=== PATIENT | female | born 1950 | race African-American/Black ===

== ENCOUNTER 2018-12-10 11:44 | Emergency (ER) | payer OTHER ==
[2018-12-10 12:20] VITALS: BMI 36.3
--- NOTE | 2018-12-10 12:20 | PDOC ---
Rapid Medical Evaluation Chief Complaint: Shortness of Breath Time Seen by Provider: 12/10/18 12:17 Medical Evaluation: Allergies Allergy/AdvReac Type Severity Reaction Status Date / Time morphine Allergy Itching Verified 12/08/12 20:35 12/10/18 12:17 I have performed a brief in-person evaluation of this patient The patient present with a chief complaint of: worsening flu symptoms. Patient states swab + flu at Urgent center last week. Present here, sent by pmd, to r/o pneumonia. Complaining of bodyaches and shortness of breath Pertinent physical exam findings: occasional coughs in triage, hoarseness clear breaths, diminished breath on upper left posterior lung I have ordered the following: chest xray The patient will proceed to the ED for further evaluation. Discharge Disposition - Diagnosis Flu-like symptoms - Referrals - Patient Instructions - Post Discharge Activity
--- NOTE | 2018-12-10 14:56 | PDOC ---
History of Present Illness - General Chief Complaint: Shortness of Breath Stated Complaint: BODYACHE AND HEADACHE Time Seen by Provider: 12/10/18 12:17 History Source: Patient Exam Limitations: No Limitations - History of Present Illness Initial Comments: 12/10/18 14:48 68-year-old female presents the ED with complaints of nasal congestion, cough, and shortness of breath with coughing exacerbation. Patient with recent diagnosis of influenza last week was given Tamiflu and took Motrin for fever. Patient currently denies fever, chills, throat pain, dizziness, weakness, nausea , abdominal pain or chest pain. Timing/Duration: reports: intermittent, week Severity: reports: mild Modifying Factors: improves with: coughing Associated Symptoms: reports: cough, headache (frontal), nasal congestion Past History - Travel Traveled outside of the country in the last 30 days: No Close contact w/someone who was outside of country & ill: No - Past Medical History Allergies/Adverse Reactions: Allergies Allergy/AdvReac Type Severity Reaction Status Date / Time morphine Allergy Itching Verified 12/08/12 20:35 Home Medications: Ambulatory Orders Diltiazem Cd [Cardizem Cd -] 300 mg PO DAILY 04/03/12 Furosemide [Lasix -] 40 mg PO DAILY 04/03/12 Levothyroxine [Synthroid -] 150 mcg PO DAILY 04/03/12 Rivaroxaban [Xarelto -] 20 mg PO DAILY 12/08/12 Biotin 5 mg PO DAILY 04/07/15 Cholecalciferol (Vitamin D3) [Vitamin D3] 1 tab PO DAILY 04/07/15 Losartan Potassium [Cozaar] 1 tab PO DAILY 04/07/15 Pnv/Iron,Carb/Om-3/FA/Fat 1 [Multivitamin with Minerals Cap] 1 cap PO DAILY Amoxicillin/Potassium Clav [Augmentin 875-125 Tablet] 1 each PO BID #14 tablet 12/10/18 Guaifenesin AC [Robitussin AC] 10 ml PO BID #120 ml MDD 2 12/10/18 Anemia: No Asthma: No Cardiac Disorders: No (ATRIAL FIBRILLATION) CVA: Yes (LEFT SIDED WEAKNESS) COPD: No Dementia: No Diabetes: No GI Disorders: Yes (ABDOMINAL PAIN,BLOATING) Disorders: No HTN: Yes Hypercholesterolemia: No Liver Disease: No Seizures: No Thyroid Disease: Yes (HYPOTHYROID DISEASE) - Surgical History Abdominal Surgery: No Appendectomy: No Cholecystectomy: Yes Lung Surgery: No Neurologic Surgery: No Orthopedic Surgery: No - Suicide/Smoking/Psychosocial Hx Smoking Status: No Smoking History: Never smoked Have you smoked in the past 12 months: No Number of Cigarettes Smoked Daily: 0 Information on smoking cessation initiated: No Hx Alcohol Use: No Drug/Substance Use Hx: No Substance Use Type: None Hx Substance Use Treatment: No Patient Lives Alone: No Lives with/in: spouse/SO Respiratory Specific PMHX - Complaint Specific PMHX Bronchitis: Yes Review of Systems - Review of Systems Able to Perform ROS?: No Is the patient limited Norwegian proficient: No Constitutional: No: Symptoms Reported HEENTM: No: Symptoms Reported Respiratory: No: Symptoms reported Cardiac (ROS): No: Symptoms Reported ABD/GI: No: Symptoms Reported : No: Symptoms Reported Musculoskeletal: No: Symptoms Reported Integumentary: No: Symptoms Reported Neurological: No: Symptoms reported *Physical Exam - Vital Signs Last Vital Signs Temp Pulse Resp BP Pulse Ox 98.5 F 62 20 151/91 100 12/10/18 12:16 12/10/18 12:16 12/10/18 12:16 12/10/18 12:16 12/10/18 12:16 - Physical Exam General Appearance: Yes: Nourished, Appropriately Dressed. No: Apparent Distress HEENT: positive: EOMI, JAHAIRA, TMs Normal, Pharynx Normal, Nasal Congestion, Sinus Tenderness. negative: Pale Conjunctivae Neck: positive: Supple Respiratory/Chest: positive: Lungs Clear, Normal Breath Sounds. negative: Respiratory Distress, Accessory Muscle Use Cardiovascular: positive: Regular Rhythm, Regular Rate. negative: Murmur Gastrointestinal/Abdominal: positive: Soft. negative: Tenderness Integumentary: positive: Normal Color, Warm, Moist Neurologic: positive: Motor Strength 5/5 (ambulatory) Medical Decision Making - Medical Decision Making 12/10/18 14:47 Chief complaint: Cough congestion and shortness of breath. Patient with diagnosis of flu last week. Exam: Vital stable lungs clear to auscultation Plan: Chest x-ray to rule out pneumonia otherwise will treat for sinus infection *DC/Admit/Observation/Transfer Diagnosis at time of Disposition: Cough - Discharge Dispostion Disposition: HOME Condition at time of disposition: Good - Prescriptions Prescriptions: Amoxicillin/Potassium Clav [Augmentin 875-125 Tablet] 1 each PO BID #14 tablet Guaifenesin AC [Robitussin AC] 10 ml PO BID #120 ml MDD 2 - Referrals Referrals: Kendall Alvarez MD [Primary Care Provider] - - Patient Instructions Printed Discharge Instructions: DI for Cough -- Adult Additional Instructions: Please take Antibiotics as prescribed and use Robitussin with codeine to help the cough. Follow up with your primary care physician - Post Discharge Activity Forms/Work/School Notes: Back to Work
[2018-12-10 15:49] VITALS: PULSE 65; TEMP 98
[2018-12-10 15:59] VITALS: BP 0/0
== END 2018-12-10 15:49 | disposition home or self-care (01) ==
LOC: JER 11:44
DX: J11.1 Influenza due to unidentified influenza virus with other respiratory manifestations (principal); I48.91 Unspecified atrial fibrillation; Z79.01 Long term (current) use of anticoagulants; I10 Essential (primary) hypertension; E03.9 Hypothyroidism, unspecified; I69.854 Hemiplegia and hemiparesis following other cerebrovascular disease affecting left non-dominant side
CPT/HCPCS: 71046-TC-FY; 99282-25

== ENCOUNTER 2019-02-22 00:11 | Inpatient (IN) | payer OTHER ==
--- NOTE | 2019-02-22 00:28 | PDOC ---
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 Pt is accompanied by her son. Pt states she has been cleaning the wound with warm water and soap, and applying clean dressings daily. Pt states the redness, warmth, and weeping to the L leg has increased today, which brought her to the ER for concern of worsening infection. Pt has had cellulitis of the LEs in the past, requiring inpatient cultures and abx, per pt. Pt also has extensive clotting history, despite being on AC, requiring IVC filter placement. Pt denies any fevers/chills, headache, vision changes, syncope, chest pain, palpitations, SOB, nausea/vomiting, abdominal pain, urinary symptoms, diarrhea/ constipation. Allergies: morphine PCP: King Leach Social: Pt denies any cigarette, alcohol, or drug use. Pt denies any recent travel or sick contacts. Surgical: IVC filter placement, multiple DVT/emboli. Family: no relevant history. 02/24/19 16:47 Past History - Travel Traveled outside of the country in the last 30 days: No Close contact w/someone who was outside of country & ill: No - Past Medical History Allergies/Adverse Reactions: Allergies Allergy/AdvReac Type Severity Reaction Status Date / Time morphine Allergy Itching Verified 02/22/19 01:00 Home Medications: Ambulatory Orders Diltiazem Cd [Cardizem Cd -] 300 mg PO DAILY 04/03/12 Furosemide [Lasix -] 40 mg PO DAILY 04/03/12 Levothyroxine [Synthroid -] 175 mcg PO DAILY 04/03/12 Rivaroxaban [Xarelto -] 20 mg PO DAILY 12/08/12 Cholecalciferol (Vitamin D3) [Vitamin D3] 1 tab PO DAILY 04/07/15 Losartan Potassium [Cozaar] 1 tab PO DAILY 04/07/15 Pnv/Iron,Carb/Om-3/FA/Fat 1 [Multivitamin with Minerals Cap] 1 cap PO DAILY Anemia: No Asthma: No Cardiac Disorders: No (ATRIAL FIBRILLATION) CVA: Yes (LEFT SIDED WEAKNESS) COPD: No Dementia: No Diabetes: No GI Disorders: Yes (ABDOMINAL PAIN,BLOATING) Disorders: No HTN: Yes Hypercholesterolemia: No Liver Disease: No Seizures: No Thyroid Disease: Yes (HYPOTHYROID DISEASE) - Surgical History Abdominal Surgery: No Appendectomy: No Cholecystectomy: Yes Lung Surgery: No Neurologic Surgery: No Orthopedic Surgery: No - Suicide/Smoking/Psychosocial Hx Smoking Status: No Smoking History: Never smoked Have you smoked in the past 12 months: No Number of Cigarettes Smoked Daily: 0 Hx Alcohol Use: No Drug/Substance Use Hx: No Substance Use Type: None Hx Substance Use Treatment: No Review of Systems - Review of Systems Able to Perform ROS?: Yes Is the patient limited Portuguese proficient: No Constitutional: Yes: Weight Stable. No: Chills, Diaphoresis, Fever, Loss of Appetite, Malaise, Weakness HEENTM: No: Blurred Vision, Double Vision, Nose Congestion, Throat Pain, Throat Swelling, Difficulty Swallowing Respiratory: No: Cough, Orthopnea, Shortness of Breath Cardiac (ROS): Yes: Edema. No: Chest Pain, Irregular Heart Rate, Lightheadedness, Palpitations, Syncope, Chest Tightness ABD/GI: No: Constipated, Diarrhea, Nausea, Poor Appetite, Poor Fluid Intake, Vomiting : No: Burning, Dysuria, Pain, Urgency Musculoskeletal: Yes: See HPI, Joint Pain (L mid-bowie pain), Joint Swelling (L ankle swelling). No: Back Pain Integumentary: Yes: See HPI, Erythema (warmth, erythema of L mid bowie, chronic skin darkening b/l LE), Other (clear weeping from leg injury). No: Bruising, Rash Neurological: No: Headache, Numbness, Paresthesia, Weakness, Unsteady Gait, Ataxia, Dizziness Psychiatric: No: Sleep Pattern Change, Change in Appetite Endocrine: No: Increased Urine, Change in Weight Hematologic/Lymphatic: Yes: Blood Clots (DVT, CVA, IVC filter). No: Anemia, Easy Bleeding, Easy Bruising All Other Systems: Reviewed and Negative *Physical Exam - Physical Exam Comments: Vitals stable, pt afebrile. Pt in NAD, obese body habitus. Pt alert and oriented x3. event decorator generally intact, muscular strength and sensation intact. No midline spinal tenderness, step-offs, or crepitus. Head normocephalic, atraumatic. Eyes PERRLA, EOMI. Oropharynx without erythema or exudates, no LAD b/l. No nasal congestion, hearing intact. Clear heart sounds, S1/S2, no JVD, or heart murmur. +b/l pedal edema LLE>RLE. Clear lung sounds, no respiratory distress, wheezes, crackles, or accessory muscle use. No abdominal or CVA tenderness to palpation, no rebound, no guarding. Abdomen soft, non-distended, and with normoactive bowel sounds. Erythema, edema, and warmth of LLE at mid-bowie, with multiple ~1 cm excoriations and clear weeping. Skin otherwise without jaundice or rash. 02/22/19 02:26 02/24/19 16:37 ED Treatment Course - LABORATORY CBC & Chemistry Diagram: 02/24/19 07:18 02/24/19 07:15 Medical Decision Making - Medical Decision Making Pt was seen at bedside, also will be seen by attending Dr. Horta. Pt presenting with LLE pain and weeping after she hit her bowie against a car door 2 weeks ago (02/11/2019). Pt states she has been cleaning the wound with warm water and soap, and applying clean dressings daily. Pt states the redness, warmth, and weeping to the L leg has increased today, which brought her to the ER for concern of worsening infection. Pt has had cellulitis of the LEs in the past, requiring inpatient cultures and abx, per pt. Pt also has extensive clotting history, despite being on AC, requiring IVC filter placement. Pt denies any fevers/chills, headache, vision changes, syncope, chest pain, palpitations, SOB, nausea/vomiting, abdominal pain, urinary symptoms, diarrhea/ constipation. Considering superficial cellulitis vs deeper tissue infection/osteomyelitis. Will also obtain LE doppler to eval for DVT, and x-ray for fracture. No crepitus on exam to suggest tracking fistula or necrotizing fasciitis. Sensation intact in LE with intact pulses, no evidence of compartment syndrome. Ordered work-up including CBC, CMP, ESR, CRP, blood cultures, x-ray of L tib-fib , LE doppler to eval for DVT. Provided 600 mg IV clindamycin for abx coverage. Will continue to reassess pt and monitor for symptomatic improvement. ECG: AFib (HR 78, QRS 84). No TWIs or significant ST segment changes. No significant changes from prior ECG. LE doppler study negative for DVT. L popliteal cyst (not area of tenderness). 02/22/19 04:03 Tib/Fib x-ray shows no acute fracture, no subcut air (read in ER with Dr. Guaman). CBC with elevated WBC 13.8 -- treating with abx. Pending cultures. 02/22/19 04:23 CMP WNL. CRP elevated. Pt admitted to hospitalist team (Dr. Galaviz). Pt resting comfortably in bed. 02/22/19 06:06 02/24/19 16:43 *DC/Admit/Observation/Transfer Diagnosis at time of Disposition: Cellulitis Qualifiers: Site of cellulitis: extremity Site of cellulitis of extremity: lower extremity Laterality: left Qualified Code(s): L03.116 - Cellulitis of left lower limb - Discharge Dispostion Condition at time of disposition: Stable Decision to Admit order: Yes - Referrals - Patient Instructions - Post Discharge Activity
[2019-02-22 01:00] VITALS: BMI 36.3
[2019-02-22] MEDS ORDERED: CLINDAMYCIN 600MG PREMIX IVPB 600 MG/50 ML BAG IVPB ONE ×2 (01:39→03:57)
--- NOTE | 2019-02-22 02:20 | PDOC ---
Documentation entered by Rossy Jacobs SCRIBE, acting as scribe for Mary Jane Horta DO. Mary Jane Horta, DO: This documentation has been prepared by the ajssi, Rossy Jacobs SCRIBE, under my direction and personally reviewed by me in its entirety. I confirm that the documentation accurately reflects all work , treatment, procedures, and medical decision making performed by me. Attending Attestation - Resident Resident Name: SelamSandhya - ED Attending Attestation I have performed the following: I have examined & evaluated the patient, The case was reviewed & discussed with the resident, I agree w/resident's findings & plan, Exceptions are as noted - HPI HPI: The patient is a 68 year old female, with a significant PMH of Afib, CVA (with residual left sided weakness), hypothyroidism, and HTN who presents to the emergency department with an open wound on her left lower leg sustained last week. Patient states she struck her left bowie last week on a car door sustaining a gash. Patient reports cleaning and bandaging it, however it became red, warm to touch, and began draining clear fluid a few days ago. Patient states her bowie is now hot to touch and both redness and drainage have progressively worsened, prompting her visit today. The patient denies chest pain, shortness of breath, headache and dizziness. Denies fever, chills, nausea, vomiting, diarrhea and constipation. Denies dysuria, frequency, urgency and hematuria. Allergies: NKA Past surgical history: Cholecystectomy Social history: No reported PCP: Dr. Alvarez 02/22/19 01:56 - Physicial Exam PE: GENERAL: Awake, alert, and fully oriented, in no acute distress HEAD: No signs of trauma EYES: PERRLA, EOMI, sclera anicteric, conjunctiva clear ENT: Auricles normal inspection, hearing grossly normal, nares patent, oropharynx clear without exudates. Moist mucosa NECK: Normal ROM, supple, no lymphadenopathy, JVD, or masses LUNGS: Breath sounds equal, clear to auscultation bilaterally. No wheezes, and no crackles HEART: Irregularly irregular rate and rhythm, normal S1 and S2, no murmurs, rubs or gallops ABDOMEN: Soft, nontender, normoactive bowel sounds. No guarding, no rebound. No masses EXTREMITIES:(+)Chronic bilateral venous stasis. (+) 3 avulsions of skin to anterior left lower extremity bowie with weeping serous drainage, and surrounding erythema to entire lower leg. (+)Circumferential tenderness and edema to the left lower extremity. (+)Left lower extremity hot to touch. (+) Left proximal tibia tenderness. No lymphangitic spread. No crepitus. Pedal pulses intact bilaterally. Normal range of motion, No clubbing or cyanosis. No cords. NEUROLOGICAL: (+) Baseline left side weakness s/p CVA/TIA. Walks with cane. Cranial nerves II through XII grossly intact. Normal speech. SKIN: Warm, Dry, normal turgor, no rashes noted. 02/22/19 01:57 - Medical Decision Making 02/22/19 01:27 I, Dr. Mary Jane Horta, DO, attest that this document has been prepared under my direction and personally reviewed by me in its entirety. I further attest, that it accurately reflects all work, treatment, procedures and medical decision -making performed by me. 02/22/19 01:27 a/p: 68yo female with LLE warmth, tenderness, avulsions of skin -pt with leg injury on february 11 -has been using bacitracin and applying a dressing daily -redness, drainage, soaking through her dressing and her pants today -serous drainage -red, hot ttp leg -will send labs, cultures, will start abx -ultrasound, however has only missed tonights dose of xarelto -will need abx -will monitor and reassess
[2019-02-22] MEDS ORDERED: SODIUM CHLORIDE 500 ML IV STA (02:26)
[2019-02-22 04:19] LABS: BASO % 0.7 % (0-2.0); EOS % 0.3 % (0-4.5); HEMATOCRIT 45.8 % (32.4-45.2); HEMOGLOBIN 14.8 GM/dL (10.7-15.3); LYMPH % 7.1 % (8-40); MCH 31.1 pg (25.7-33.7); MCHC 32.3 g/dl (32.0-36.0); MEAN CELL VOLUME 96.5 fl (80-96); MEAN PLT VOLUME 9.3 fl (7.5-11.1); MONO % 3.7 % (3.8-10.2); NEUT % 88.2 % (42.8-82.8); RBC 4.75 M/mm3 (3.60-5.2); RDW 15.5 % (11.6-15.6); WHITE BLOOD COUNT 13.8 K/mm3 (4.0-10.0)
[2019-02-22 04:28] LABS: PLATELET COUNT 149 K/MM3 (134-434)
[2019-02-22 04:42] LABS: ALBUMIN 3.6 g/dl (3.4-5.0); BILIRUBIN,TOTAL 1.1 mg/dL (0.2-1); BLOOD UREA NITROGEN 14.1 mg/dL (7-18); CALCIUM 8.9 mg/dL (8.5-10.1); POTASSIUM 4.6 mmol/L (3.5-5.1); TOT PROT 7.1 g/dl (6.4-8.2)
[2019-02-22 05:09] LABS: INR 2.73 (0.83-1.09); PROTHROMBIN TIME (PATIENT) 32.5 SEC (9.7-13.0)
--- NOTE | 2019-02-22 06:11 | PN ---
Teaching Attending Note Name of Resident: Erlin Preston ATTENDING PHYSICIAN STATEMENT I saw and evaluated the patient. I reviewed the resident's note and discussed the case with the resident. I agree with the resident's findings and plan as documented. SUBJECTIVE: Seen and examined; please refer to resident note for further historical info. Briefly, this is a 68 y/o female with a PMH significant for CVA, DVTs s/p IVC filter on xarelto, multiple episodes cellulitis (non-MRSA and was never on contact per pateint who is a nurse), peripheral vascular disease, sarcoidosis, Charcot Foot in the process of getting fixed, presents to the ER with a CC of LLE cellulitis. She had scraped her leg on a car door 2 weeks ago; she tried cnservative measures at home with topical abx ointments and wrapping but with no success. She is hemodynamically stable and afebrile. Drainage worsened and got somewhat malodorous so she came to the ER. No recent hospitalizations or PO abx. No exposure to water, etc. Will touch base with PCPs office when they open in 2 hours to ensure that Tdap is up to date. 10 sys ROS done and negative aside from HPI PMH, PSH, FH, SH reviewed Home Medications Medication Instructions Recorded Diltiazem Cd [Cardizem Cd -] 300 mg PO DAILY 04/03/12 Furosemide [Lasix -] 40 mg PO DAILY 04/03/12 Levothyroxine [Synthroid -] 175 mcg PO DAILY 04/03/12 Rivaroxaban [Xarelto -] 20 mg PO DAILY 12/08/12 Cholecalciferol (Vitamin D3) 1 tab PO DAILY 04/07/15 [Vitamin D3] Losartan Potassium [Cozaar] 1 tab PO DAILY 04/07/15 Pnv/Iron,Carb/Om-3/FA/Fat 1 1 cap PO DAILY 04/07/15 [Multivitamin with Minerals Cap] OBJECTIVE: VS, labs, imaging reviewed NAD, AAO, resting comfortably in bed NC AT EOMI PERRLA LLE with chronic venous stasis changes, +pulses, no crepitus under soft tissue Rubar and some abrasions from the door noted; some weeping and warmth. CN2-12 wnl, no fnd Moves all 4 ext, normal sensory Normal mood, appropriate behavior Euvolemic, no JVD EKG pending review XR reviewed; no obvious free air US pending (V and A) ASSESSMENT AND PLAN: Patient presents with LLE cellulitis 1) LLE Cellulitis -IV clindamycin, monitor for further fevers and leukocytosis and broaden if needed. No hx MRSA per patient who is a nurse. Would be helpful to get old cultures -Followup cultures here -Followup US studies. Negative ESR, positive CRP. Monitor. -Consult Dr. Regan for wound care 2) Supratherapeutic INR -Noted; on xarelto which can precipitate this. Trend coags 3) DVT hx -Continue rivaroxaban, s/p IVC filter 4) Afib -Continue xarelto, diltiazem 5) HTN -Continue losartan
--- NOTE | 2019-02-22 06:15 | HP ---
CHIEF COMPLAINT: foul smelling Left lower extremity PCP: Dr. Malik HISTORY OF PRESENT ILLNESS: Pt. is a 68 y.o. F w/ PMHx. 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 Pt. states she has been wrapping her leg frequently but that when she noticed the foul smelling odor decided to come in to have it evaluated. Pt endorses increased swelling, redness, warmth and tenderness to palpation. Pt. denies any fever or chills at home, but did note that her leg felt hot a few days ago. Of note Pt. follows Dr. Laech for her Sarcoidosis. ER course was notable for: (1)BCx., CXR, Duplex, EKG, Left Tib/Fib Xray (2) NS 500ml, Clindamycin 600mg (3) Recent Travel: No PAST MEDICAL HISTORY: as above PAST SURGICAL HISTORY: IVC Filter placement, Cardiac Cath (w/o stents in 2012), CCY Social History: Smoking: Denies Alcohol: Denies Drugs: Denies Family History: Non-contributory Allergies morphine Allergy (Verified 02/22/19 01:00) Itching HOME MEDICATIONS: Home Medications Medication Instructions Recorded Diltiazem Cd [Cardizem Cd -] 300 mg PO DAILY 04/03/12 Furosemide [Lasix -] 40 mg PO DAILY 04/03/12 Levothyroxine [Synthroid -] 175 mcg PO DAILY 04/03/12 Rivaroxaban [Xarelto -] 20 mg PO DAILY 12/08/12 Cholecalciferol (Vitamin D3) 1 tab PO DAILY 04/07/15 [Vitamin D3] Losartan Potassium [Cozaar] 1 tab PO DAILY 04/07/15 Pnv/Iron,Carb/Om-3/FA/Fat 1 1 cap PO DAILY 04/07/15 [Multivitamin with Minerals Cap] REVIEW OF SYSTEMS As above PHYSICAL EXAMINATION Vital Signs - 24 hr 02/22/19 02/22/19 02/22/19 00:15 01:01 02:52 Temperature 98.3 F Pulse Rate 75 Pulse Rate [ 71 Radial] Respiratory 12 14 Rate Blood Pressure 144/107 H Blood Pressure 116/79 [Left Arm] O2 Sat by Pulse 99 95 95 Oximetry (%) 02/22/19 02/22/19 03:02 05:41 Temperature 98.8 F Pulse Rate Pulse Rate [ 70 Radial] Respiratory 14 18 Rate Blood Pressure Blood Pressure 124/89 [Left Arm] O2 Sat by Pulse 97 98 Oximetry (%) GENERAL: Awake, alert, and fully oriented, in no acute distress. HEAD: Normal with no signs of trauma. EYES: Pupils equal, round and reactive to light, extraocular movements intact, sclera anicteric, conjunctiva clear. EARS, NOSE, THROAT: Moist mucous membranes. NECK: Normal range of motion, supple without lymphadenopathy, JVD, or masses. LUNGS: Breath sounds equal, clear to auscultation bilaterally. No wheezes, and no crackles. No accessory muscle use. HEART: Regular rate and rhythm, normal S1 and S2 without murmur ABDOMEN: Soft, nontender, not distended, normoactive bowel sounds, no guarding, no rebound, no masses. MUSCULOSKELETAL: Normal range of motion at all joints. No bony deformities or tenderness. No CVA tenderness. UPPER EXTREMITIES: warm, well-perfused. No cyanosis. No clubbing. No peripheral edema. LOWER EXTREMITIES: 2+ dorsal pedal pulses, warm, well-perfused, 3+ edema, tenderness to palpation, open erythematous would on left lower extremity NEUROLOGICAL: Normal speech. PSYCHIATRIC: Cooperative. Good eye contact. Appropriate mood and affect. SKIN: Warm, dry, normal turgor, Laboratory Results - last 24 hr 02/22/19 02/22/19 02/22/19 03:34 03:53 03:53 WBC 13.8 H RBC 4.75 Hgb 14.8 Hct 45.8 H MCV 96.5 H MCH 31.1 MCHC 32.3 RDW 15.5 Plt Count 149 D MPV 9.3 Absolute Neuts (auto) 12.1 H Neutrophils % 88.2 H D Lymphocytes % 7.1 L D Monocytes % 3.7 L Eosinophils % 0.3 D Basophils % 0.7 D Nucleated RBC % 0 ESR PT with INR 32.50 H INR 2.73 H Sodium 141 Potassium 4.6 Chloride 107 Carbon Dioxide 27 Anion Gap 7 L BUN 14.1 Creatinine 1.0 Est GFR (CKD-EPI)AfAm 67.99 Est GFR (CKD-EPI)NonAf 58.66 Random Glucose 92 Calcium 8.9 Total Bilirubin 1.1 H AST 23 ALT 24 Alkaline Phosphatase 97 C-Reactive Protein Total Protein 7.1 Albumin 3.6 02/22/19 02/22/19 03:53 03:53 WBC RBC Hgb Hct MCV MCH MCHC RDW Plt Count MPV Absolute Neuts (auto) Neutrophils % Lymphocytes % Monocytes % Eosinophils % Basophils % Nucleated RBC % ESR 2 PT with INR INR Sodium Potassium Chloride Carbon Dioxide Anion Gap BUN Creatinine Est GFR (CKD-EPI)AfAm Est GFR (CKD-EPI)NonAf Random Glucose Calcium Total Bilirubin AST ALT Alkaline Phosphatase C-Reactive Protein 3.0 H Total Protein Albumin ASSESSMENT/PLAN: Pt. is a 68 y.o. F w/ PMHx. 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 #Cellulitis of LLE C/w Clindamycin 600mg Q8H (minimum 5 days) f/u Art. Duplex Consult to Wound care (Dr. Regan) appreciated f/u ESR CRP: 3.0 Venous Duplex Neg. for DVT, L. Popliteal cyst. Tib/Fib Xray Negative f/u Bcx. WBC: 13.8 , afebrile #Afib EKG: AFib: HR 78, No TWIs or significant ST segment changes, unchanged from prior. c/w Xarelto c/w Diltiazem 300mg trend INR, currently 2.73 (known to happen on certain Noacs, including Xarelto) #HTN c/w Losartan #Charcot Foot c/w Lasix 40mg #FEN no IVF, encourge PO intake monitor electrolytes and replete as needed Na Restricted Diet #DVT Ppx. c/w xarelto s/p IVC filter Visit type - Emergency Visit Emergency Visit: Yes ED Registration Date: 02/22/19 Care time: The patient presented to the Emergency Department on the above date and was hospitalized for further evaluation of their emergent condition. - New Patient This patient is new to me today: Yes Date on this admission: 02/22/19 - Critical Care Critical Care patient: No
--- NOTE | 2019-02-22 11:32 | EKG ---
Test Reason : Blood Pressure : / mmHG Vent. Rate : 078 BPM Atrial Rate : 080 BPM P-R Int : 000 ms QRS Dur : 084 ms QT Int : 374 ms P-R-T Axes : 000 034 042 degrees QTc Int : 426 ms POOR DATA QUALITY, INTERPRETATION MAY BE ADVERSELY AFFECTED ATRIAL FIBRILLATION NONSPECIFIC ST ABNORMALITY Confirmed by LIZZIE GUADALUPE MD ([id number]) on 02/22/2019 11:32:31 AM Referred By: Confirmed By:LIZZIE GUADALUPE MD
[2019-02-22] MEDS: CLINDAMYCIN 600MG PREMIX IVPB 600 MG/50 ML BAG IVPB SCH ×2 (13:04→18:28)
[2019-02-22] MEDS: LACTOBACILLUS ACIDOPHILUS 1 TABLET PO SCH (13:05)
--- NOTE | 2019-02-22 17:40 | PN ---
Physical Exam: SUBJECTIVE: Patient seen and examined at bedside. Resting in bed. No complaints. OBJECTIVE: Vital Signs Period Temp Pulse Resp BP Sys/Mon Pulse Ox Last 24 Hr 98.3 F-99.1 F 70-75 12-20 116-144/79-107 95-99 GENERAL: AAOx3, NAD HEAD: Normal with no signs of trauma. EYES: EOMI Sclera Clear ENT: MMM NECK: Trachea midline, full range of motion, supple. LUNGS: CTAB. HEART: RRR S1S2 ABDOMEN: Obese, NDNT NEUROLOGICAL: Cranial nerves II through XII grossly intact. Normal speech PSYCH: Normal mood, normal affect. SKIN: Erythema, warmth, serosanguinous discharge LLE Laboratory Results - last 24 hr 02/22/19 02/22/19 02/22/19 03:34 03:53 03:53 WBC 13.8 H RBC 4.75 Hgb 14.8 Hct 45.8 H MCV 96.5 H MCH 31.1 MCHC 32.3 RDW 15.5 Plt Count 149 D MPV 9.3 Absolute Neuts (auto) 12.1 H Neutrophils % 88.2 H D Lymphocytes % 7.1 L D Monocytes % 3.7 L Eosinophils % 0.3 D Basophils % 0.7 D Nucleated RBC % 0 ESR PT with INR 32.50 H INR 2.73 H Sodium 141 Potassium 4.6 Chloride 107 Carbon Dioxide 27 Anion Gap 7 L BUN 14.1 Creatinine 1.0 Est GFR (CKD-EPI)AfAm 67.99 Est GFR (CKD-EPI)NonAf 58.66 Random Glucose 92 Calcium 8.9 Total Bilirubin 1.1 H AST 23 ALT 24 Alkaline Phosphatase 97 C-Reactive Protein Total Protein 7.1 Albumin 3.6 02/22/19 02/22/19 03:53 03:53 WBC RBC Hgb Hct MCV MCH MCHC RDW Plt Count MPV Absolute Neuts (auto) Neutrophils % Lymphocytes % Monocytes % Eosinophils % Basophils % Nucleated RBC % ESR 2 PT with INR INR Sodium Potassium Chloride Carbon Dioxide Anion Gap BUN Creatinine Est GFR (CKD-EPI)AfAm Est GFR (CKD-EPI)NonAf Random Glucose Calcium Total Bilirubin AST ALT Alkaline Phosphatase C-Reactive Protein 3.0 H Total Protein Albumin Active Medications Generic Name Dose Route Start Last Admin Trade Name Freq PRN Reason Stop Dose Admin Clindamycin Phosphate 600 mg in 50 mls @ 100 mls/hr 02/22/19 10:00 02/22/19 13:04 Cleocin 600 Mg Premix Ivpb - IVPB 100 mls/hr Q8H-IV NATE Administration Protocol Lactobacillus Acidophilus 1 tab 02/22/19 11:45 02/22/19 13:05 Bacid - PO 1 tab DAILY NATE Administration ASSESSMENT/PLAN: 68 y/o. F w/ PMHx. of Afib (on Xarelto), HTN, CVA, Pneumonia, B/l Cellulites , DVT, Charcot Foot, and Sarcoidosis (not on medications currently) presented to [facility] due to left lower extremity cellulites since last week Monday after hitting her leg against a car. #Cellulitis of LLE -Clindamycin 600mg Q8H -f/u Art. Duplex ----> mild atherosclerotic disease, no evidence of hemodynamically significant stenosis. Inflow pathology to LLE, additional studies recommended. -Wound care (Dr. Regan) on board. Recommends Silvadine to area in addition to I.V ABx. ESR----> 2 CRP: 3.0 Venous Duplex Neg. for DVT, L. Popliteal cyst. Tib/Fib Xray Negative f/u Bcx. Currently pending WBC: 13.8 on admission, will repeat in am #Afib EKG: AFib: HR 78, No TWIs or significant ST segment changes, unchanged from prior. c/w Xarelto c/w Diltiazem 300mg trend INR, currently 2.73 #HTN c/w Losartan #Charcot Foot c/w Lasix 40mg #FEN no IVF monitor electrolytes and replete as needed Na Restricted Diet #DVT Ppx. c/w xarelto s/p IVC filter Visit type - Emergency Visit Emergency Visit: Yes ED Registration Date: 02/22/19 Care time: The patient presented to the Emergency Department on the above date and was hospitalized for further evaluation of their emergent condition. - New Patient This patient is new to me today: Yes Date on this admission: 02/22/19 - Critical Care Critical Care patient: No - Discharge Referral Referred to [facility] Med P.C.: No
--- NOTE | 2019-02-22 17:56 | PN ---
Progress Note (short form) - Note Progress Note: Vascular Surgery Pt seen and examined. Left lower ext cellulitis. Pt claims her car door hit her a couple of weeks ago and then the leg got infected. Pt has good palpable pulses. Silvadene to leg. leg elevation IV antibiotics. Jerrod Regan DO
[2019-02-22] MEDS: SILVER SULFADIAZINE 1% TOP CREAM 50 GM JAR TP SCH (18:37)
--- NOTE | 2019-02-22 18:56 | PN ---
Teaching Attending Note Name of Resident: Raoul Costa ATTENDING PHYSICIAN STATEMENT I saw and evaluated the patient. I reviewed the resident's note and discussed the case with the resident. I agree with the resident's findings and plan as documented. SUBJECTIVE: No fever or chills. No LORD . minimal discomfort in L leg . reports L ankle and foot and leg edema since her storke OBJECTIVE: NAD Cv: RRR Lungs: CTAB Ext : L leg with erythema and edema and increased warmth, extending faintly to medial thigh . small ulcerations on anterior bowie with serous drainage DP 1+ b/l . RLE with no edema L hand with contracted fingers ASSESSMENT AND PLAN: 68 y/o lady with h/o Stroke with residual L sided weakness, DVTs ( IVC filter), A fib, PVd and sarcoidosis who presneted with pain, erythema, and edema on LLE. She was found to have LLE cellulitis 1- LLE cellulitis : - cont clinda for now. if no worsening, can broaden abx - follow blood cx - silvadine on wounds 2- PVD: suggested decreased flow on US on L side. f/u as out pt as her pulses are palpable 3- h/o A fib: cont xarelto and cardizem. 4- H/o HTN: cont cardizem, and losartan. cont lasix HLOC PT eval
[2019-02-23] MEDS: CLINDAMYCIN 600MG PREMIX IVPB 600 MG/50 ML BAG IVPB SCH ×3 (02:06→17:13)
[2019-02-23] MEDS ORDERED: LEVOTHYROXINE NA 100 MCG TABLET (FP) ONE (05:51)
[2019-02-23] MEDS ORDERED: LEVOTHYROXINE NA 75 MCG TABLET (FP) ONE (05:51)
[2019-02-23] MEDS: LEVOTHYROXINE 100 MCG, LEVOTHYROXINE 75 MCG PO SCH (05:59)
[2019-02-23 07:32] LABS: INR 1.84 (0.83-1.09); PROTHROMBIN TIME (PATIENT) 21.8 SEC (9.7-13.0)
[2019-02-23 07:50] LABS: BLOOD UREA NITROGEN 14.6 mg/dL (7-18); CALCIUM 8.1 mg/dL (8.5-10.1); CREATININE 0.8 mg/dL (0.55-1.3); MAGNESIUM 2.1 mg/dL (1.8-2.4); PHOSPHOROUS 3.8 mg/dL (2.5-4.9); POTASSIUM 4.1 mmol/L (3.5-5.1)
[2019-02-23 07:51] LABS: HEMATOCRIT 41.4 % (32.4-45.2); HEMOGLOBIN 14.1 GM/dL (10.7-15.3); MCH 32.4 pg (25.7-33.7); MEAN CELL VOLUME 95.3 fl (80-96); MEAN PLT VOLUME 9.4 fl (7.5-11.1); PLATELET COUNT 159 K/MM3 (134-434); RBC 4.34 M/mm3 (3.60-5.2); RDW 15.8 % (11.6-15.6); WHITE BLOOD COUNT 6.1 K/mm3 (4.0-10.0)
--- NOTE | 2019-02-23 09:07 | PN ---
Physical Exam: SUBJECTIVE: Patient seen and examined at bedside. No events overnight. States that leg feels better. OBJECTIVE: Vital Signs Period Temp Pulse Resp BP Sys/Mon Pulse Ox Last 24 Hr 98.7 F-99.6 F 70-72 18-20 103-139/75-82 98-98 GENERAL: The patient is awake, alert, and fully oriented, in no acute distress. NECK: Trachea midline, full range of motion, supple. LUNGS: Breath sounds equal, clear to auscultation bilaterally, no wheezes, no crackles, no accessory muscle use. HEART: Regular rate and rhythm, S1, S2 without murmur, rub or gallop. ABDOMEN: Soft, nontender, nondistended, normoactive bowel sounds, no guarding, no rebound, no hepatosplenomegaly, no masses. EXTREMITIES: 2+ pulses, warm, well-perfused, no edema. NEUROLOGICAL: Cranial nerves II through X grossly intact. Normal speech, gait not observed. SKIN: Warm, dry, normal turgor, LE rash slightly better in some areas, but has extended beyond the marked line in others. Laboratory Results - last 24 hr 02/23/19 02/23/19 02/23/19 06:38 06:38 06:38 WBC 6.1 RBC 4.34 Hgb 14.1 Hct 41.4 MCV 95.3 MCH 32.4 MCHC 34.0 RDW 15.8 H Plt Count 159 MPV 9.4 PT with INR 21.80 H INR 1.84 H Sodium 141 Potassium 4.1 Chloride 108 H Carbon Dioxide 28 Anion Gap 5 L BUN 14.6 Creatinine 0.8 Est GFR (CKD-EPI)AfAm 89.04 Est GFR (CKD-EPI)NonAf 76.83 Random Glucose 73 L Calcium 8.1 L Phosphorus 3.8 Magnesium 2.1 TSH 11.60 H Active Medications Generic Name Dose Route Start Last Admin Trade Name Freq PRN Reason Stop Dose Admin Diltiazem HCl 300 mg 02/23/19 10:00 Cardizem Cd - PO DAILY NATE Furosemide 40 mg 02/23/19 10:00 Lasix - PO DAILY NATE Clindamycin Phosphate 600 mg in 50 mls @ 100 mls/hr 02/22/19 10:00 02/23/19 02:06 Cleocin 600 Mg Premix Ivpb - IVPB 100 mls/hr Q8H-IV NATE Administration Protocol Lactobacillus Acidophilus 1 tab 02/22/19 11:45 02/22/19 13:05 Bacid - PO 1 tab DAILY NATE Administration Levothyroxine Sodium 100 mcg/ 175 mcg 02/23/19 07:00 02/23/19 05:59 Levothyroxine Sodium 75 mcg PO 175 mcg DAILY@0700 NATE Administration Losartan Potassium 50 mg 02/23/19 10:00 Cozaar - PO DAILY NATE Rivaroxaban 20 mg 02/23/19 10:00 Xarelto PO DAILY NATE Silver Sulfadiazine 1 applic 02/22/19 18:00 02/22/19 18:37 Silvadene - TP 1 applic DAILY NATE Administration ASSESSMENT/PLAN: 68 y/o. F w/ PMHx. of Afib (on Xarelto), HTN, CVA, Pneumonia, B/l Cellulites , DVT, Charcot Foot, and Sarcoidosis (not on medications currently) presented to [facility] due to left lower extremity cellulites since last week Monday after hitting her leg against a car. #Cellulitis of LLE -on Clindamycin 600mg Q8H (day 2) -Art. Duplex negative -Wound care (Dr. Regan) on board: Silvadine to area in addition to I.V ABx. Venous Duplex Neg. for DVT, L. Popliteal cyst. -f/u Bcx pending -WBC: 13.8 on admission; currently WNL -ID (korina) consulted for expanding cellulitis; added Zosyn (day 1) #Afib -c/w Xarelto -c/w Diltiazem 300mg -trend INR, 1.84 today #HTN -c/w Losartan #CHF -c/w Lasix 40mg #FEN -no fluids indicated -monitor electrolytes and replete as needed -Na Restricted Diet #DVT Ppx. -on xarelto -s/p IVC filter #Dispo -admit m/s Visit type - Emergency Visit Emergency Visit: Yes ED Registration Date: 02/22/19 Care time: The patient presented to the Emergency Department on the above date and was hospitalized for further evaluation of their emergent condition. - New Patient This patient is new to me today: No - Critical Care Critical Care patient: No - Discharge Referral Referred to [facility] Med P.C.: No
[2019-02-23] MEDS ORDERED: PT OWN MED DRAWER 7, Y5N ONE ×2 (09:39→20:43)
[2019-02-23] MEDS: FUROSEMIDE 40 MG TABLET (FP) PO SCH (09:42)
[2019-02-23] MEDS: RIVAROXABAN 20 MG TABLET PO SCH (09:42)
[2019-02-23] MEDS: LOSARTAN POTASSIUM 50 MG TABLET (FP) PO SCH (09:42)
[2019-02-23] MEDS: LACTOBACILLUS ACIDOPHILUS 1 TABLET PO SCH (09:42)
[2019-02-23] MEDS: SILVER SULFADIAZINE 1% TOP CREAM 50 GM JAR TP SCH (09:45)
[2019-02-23] MEDS ORDERED: LEVOTHYROXINE NA 150 MCG TABLET PO SCH (10:00)
--- NOTE | 2019-02-23 13:37 | PN ---
Teaching Attending Note Name of Resident: Raoul Costa ATTENDING PHYSICIAN STATEMENT I saw and evaluated the patient. I reviewed the resident's note and discussed the case with the resident. I agree with the resident's findings and plan as documented. SUBJECTIVE: No fever or chills . feels pain in L foot . feels her leg is better . OBJECTIVE: NAD Cv: RRR Lungs: CTAB Ext: L leg with improved erythema and edema and increased warmth. erythema slightly extended beyond the marked line on medial thigh. small ulcerations on anterior bowie with no drainage today DP 1+ b/l. RLE with no edema L hand with contracted fingers. Neuro: strength 5/5 in RUE, and RLE, and LLE proximally and distally. LUE: with 5/5 at shoulder shrug, biceps, triceps , and contracted hand fingers . nl sensation to light touch ASSESSMENT AND PLAN: 68 y/o lady with h/o Stroke with residual L sided weakness, DVTs ( IVC filter), A fib, PVd and sarcoidosis who presneted with pain, erythema, and edema on LLE. She was found to have LLE cellulitis 1- LLE cellulitis : - On clinda now will ask ID help.d/w Dr. Quarles - Blood cx neg x 24 hr - silvadine on wounds 2- PVD: f/u as out pt for decreased flow. 3- H/o A fib: cont xarelto and cardizem. 4- H/o HTN: cont cardizem, and losartan. cont lasix HLOC PT eval
--- NOTE | 2019-02-23 13:47 | CON.ID ---
Consult Consult Specialty:: infectious diseases - Alcohol/Substance Use Hx Alcohol Use: No - Smoking History Smoking history: Former smoker Have you smoked in the past 12 months: No Aproximately how many cigarettes per day: 0 If you are a former smoker, when did you quit?: 08/1985 Home Medications - Allergies Allergies/Adverse Reactions: Allergies Allergy/AdvReac Type Severity Reaction Status Date / Time morphine Allergy Itching Verified 02/22/19 01:00 - Home Medications Home Medications: Ambulatory Orders Diltiazem Cd [Cardizem Cd -] 300 mg PO DAILY 04/03/12 Furosemide [Lasix -] 40 mg PO DAILY 04/03/12 Levothyroxine [Synthroid -] 175 mcg PO DAILY 04/03/12 Rivaroxaban [Xarelto -] 20 mg PO DAILY 12/08/12 Cholecalciferol (Vitamin D3) [Vitamin D3] 1 tab PO DAILY 04/07/15 Losartan Potassium [Cozaar] 1 tab PO DAILY 04/07/15 Pnv/Iron,Carb/Om-3/FA/Fat 1 [Multivitamin with Minerals Cap] 1 cap PO DAILY Physical Exam Vital Signs: Vital Signs Temperature 99.0 F 02/23/19 10:00 Pulse Rate 75 02/23/19 10:00 Respiratory Rate 17 02/23/19 10:00 Blood Pressure 130/82 02/23/19 10:00 O2 Sat by Pulse Oximetry (%) 97 02/23/19 09:00 Labs: CBC, BMP 02/23/19 06:38 02/23/19 06:38
[2019-02-23] MEDS ORDERED: PIPERACILLIN/TAZOBACTAM 3.375 GM VIAL IVPB ONE ×2 (14:25→17:02)
[2019-02-23] MEDS ORDERED: DEXTROSE 5%-WATER - 50 ML IVPB ONE ×2 (14:26→17:02)
[2019-02-23] MEDS: PIPERACILLIN/TAZOB 3.375 GM 3.375 GM in DEXTROSE 5%-WATER - 50 ML IVPB SCH ×2 (14:32→18:35)
[2019-02-24] MEDS ORDERED: DEXTROSE 5%-WATER - 50 ML IVPB ONE ×3 (01:10→16:15)
[2019-02-24] MEDS ORDERED: PIPERACILLIN/TAZOBACTAM 3.375 GM VIAL IVPB ONE ×3 (01:10→16:14)
[2019-02-24] MEDS: CLINDAMYCIN 600MG PREMIX IVPB 600 MG/50 ML BAG IVPB SCH ×3 (01:14→17:57)
[2019-02-24] MEDS: PIPERACILLIN/TAZOB 3.375 GM 3.375 GM in DEXTROSE 5%-WATER - 50 ML IVPB SCH ×3 (02:13→16:58)
[2019-02-24] MEDS ORDERED: LEVOTHYROXINE NA 100 MCG TABLET (FP) ONE (05:56)
[2019-02-24] MEDS ORDERED: LEVOTHYROXINE NA 75 MCG TABLET (FP) ONE (05:56)
[2019-02-24] MEDS: LEVOTHYROXINE 100 MCG, LEVOTHYROXINE 75 MCG PO SCH (06:09)
[2019-02-24 08:15] LABS: HEMOGLOBIN 14.5 GM/dL (10.7-15.3); MCH 31.5 pg (25.7-33.7); MCHC 32.9 g/dl (32.0-36.0); MEAN CELL VOLUME 95.7 fl (80-96); MEAN PLT VOLUME 8.9 fl (7.5-11.1); RBC 4.59 M/mm3 (3.60-5.2); RDW 15.7 % (11.6-15.6); WHITE BLOOD COUNT 3.8 K/mm3 (4.0-10.0)
[2019-02-24 08:38] LABS: BLOOD UREA NITROGEN 13.8 mg/dL (7-18); CALCIUM 8.4 mg/dL (8.5-10.1); CREATININE 0.9 mg/dL (0.55-1.3); POTASSIUM 4.7 mmol/L (3.5-5.1)
[2019-02-24] MEDS: FUROSEMIDE 40 MG TABLET (FP) PO SCH (09:04)
[2019-02-24] MEDS: RIVAROXABAN 20 MG TABLET PO SCH (09:04)
[2019-02-24] MEDS: LACTOBACILLUS ACIDOPHILUS 1 TABLET PO SCH (09:04)
[2019-02-24] MEDS: LOSARTAN POTASSIUM 50 MG TABLET (FP) PO SCH (09:04)
[2019-02-24 09:06] LABS: PLATELET COUNT 171 K/MM3 (134-434)
[2019-02-24] MEDS ORDERED: PT OWN MED DRAWER 7, Y5N ONE (09:06)
[2019-02-24] MEDS: SILVER SULFADIAZINE 1% TOP CREAM 50 GM JAR TP SCH (10:54)
--- NOTE | 2019-02-24 12:53 | PN ---
Progress Note, Physician History of Present Illness: patient stable leg looks much better swelling has decreased warmth improved - Current Medication List Current Medications: Active Medications Diltiazem HCl (Cardizem Cd -) 300 mg PO DAILY [facility] Last Admin: 02/24/19 09:07 Dose: 300 mg Furosemide (Lasix -) 40 mg PO DAILY [facility] Last Admin: 02/24/19 09:04 Dose: 40 mg Clindamycin Phosphate (Cleocin 600 Mg Premix Ivpb -) 600 mg in 50 mls @ 100 mls /hr IVPB Q8H-IV NATE; Protocol Last Admin: 02/24/19 10:54 Dose: 100 mls/hr Piperacillin Sod/Tazobactam (Sod 3.375 gm/ Dextrose) 50 mls @ 100 mls/hr IVPB Q8H-IV NATE; Protocol Last Admin: 02/24/19 09:03 Dose: 100 mls/hr Lactobacillus Acidophilus (Bacid -) 1 tab PO DAILY [facility] Last Admin: 02/24/19 09:04 Dose: 1 tab Levothyroxine Sodium 100 mcg/ (Levothyroxine Sodium 75 mcg) 175 mcg PO DAILY@ 0700 [facility] Last Admin: 02/24/19 06:09 Dose: 175 mcg Losartan Potassium (Cozaar -) 50 mg PO DAILY [facility] Last Admin: 02/24/19 09:04 Dose: 50 mg Rivaroxaban (Xarelto) 20 mg PO DAILY [facility] Last Admin: 02/24/19 09:04 Dose: 20 mg Silver Sulfadiazine (Silvadene -) 1 applic TP DAILY [facility] Last Admin: 02/24/19 10:54 Dose: 1 applic - Objective Vital Signs: Vital Signs Temperature 98.2 F 02/24/19 09:14 Pulse Rate 60 02/24/19 09:14 Respiratory Rate 17 02/24/19 09:14 Blood Pressure 106/72 02/24/19 09:14 O2 Sat by Pulse Oximetry (%) 97 02/23/19 22:00 Constitutional: Yes: No Distress, Calm Neck: Yes: Supple, Trachea Midline Cardiovascular: Yes: Regular Rate and Rhythm Respiratory: Yes: Regular, CTA Bilaterally Gastrointestinal: Yes: Normal Bowel Sounds, Soft Musculoskeletal: Yes: WNL Extremities: Yes: Erythema (improving) Integumentary: Yes: Erythema, Other (skin tears) Neurological: Yes: Alert, Oriented Psychiatric: Yes: Alert, Oriented Labs: CBC, BMP 02/24/19 07:18 02/24/19 07:15 INR, PTT INR 1.84 (0.83-1.09) H 02/23/19 06:38 Assessment/Plan 68 y/o. F w/ PMHx. of Afib (on Xarelto), HTN, CVA, Pneumonia, B/l Cellulites , DVT, Charcot Foot, and Sarcoidosis (not on medications currently) presented to [facility] due to left lower extremity cellulites since last week Monday after hitting her leg against a car. Cellulitis of LLE Afib HTN c/w Losartan Charcot Foot plan continue current mgmt will d/w the team elevatin of leg wound care
--- NOTE | 2019-02-24 14:01 | PN ---
Progress Note (short form) - Note Progress Note: Subjective: No fever or chills. feels better Objective: Vital Signs: Last Vital Signs Temp Pulse Resp BP Pulse Ox 98.2 F 60 17 106/72 98 02/24/19 09:14 02/24/19 09:14 02/24/19 09:14 02/24/19 09:14 02/24/19 09:00 Laboratory Results - last 24 hr 02/24/19 02/24/19 07:15 07:18 WBC 3.8 L RBC 4.59 Hgb 14.5 Hct 44.0 MCV 95.7 MCH 31.5 MCHC 32.9 RDW 15.7 H Plt Count 171 MPV 8.9 Sodium 141 Potassium 4.7 Chloride 109 H Carbon Dioxide 27 Anion Gap 5 L BUN 13.8 Creatinine 0.9 Est GFR (CKD-EPI)AfAm 77.22 Est GFR (CKD-EPI)NonAf 66.63 Random Glucose 73 L Calcium 8.4 L Physical Exam: NAD Cv: RRR Lungs: CTAB Ext: L leg with improved erythema and edema . L thigh erythema is better DP 1+ b/l. RLE with no edema L hand with contracted fingers. ASSESSMENT AND PLAN: 68 y/o lady with h/o Stroke with residual L sided weakness, DVTs ( IVC filter), A fib, PVd and sarcoidosis who presneted with pain, erythema, and edema on LLE. She was found to have LLE cellulitis 1- LLE cellulitis : improved - On clinda and zosyn - Blood cx neg to date - silvadine on wounds - follpow CBC for leukopenia 2- PVD: f/u as out pt for decreased flow. 3- H/o A fib: cont xarelto and cardizem. 4- H/o HTN: cont cardizem, and losartan. cont lasix HLOC PT eval Visit type - Emergency Visit Emergency Visit: Yes ED Registration Date: 02/22/19 Care time: The patient presented to the Emergency Department on the above date and was hospitalized for further evaluation of their emergent condition. - New Patient This patient is new to me today: No - Critical Care Critical Care patient: No
[2019-02-25] MEDS ORDERED: DEXTROSE 5%-WATER - 50 ML IVPB ONE ×3 (00:35→16:47)
[2019-02-25] MEDS ORDERED: PIPERACILLIN/TAZOBACTAM 3.375 GM VIAL IVPB ONE ×3 (00:35→16:47)
[2019-02-25] MEDS: CLINDAMYCIN 600MG PREMIX IVPB 600 MG/50 ML BAG IVPB SCH ×2 (02:05→09:15)
[2019-02-25] MEDS: PIPERACILLIN/TAZOB 3.375 GM 3.375 GM in DEXTROSE 5%-WATER - 50 ML IVPB SCH ×3 (02:05→17:15)
[2019-02-25] MEDS ORDERED: LEVOTHYROXINE NA 75 MCG TABLET (FP) ONE (05:33)
[2019-02-25] MEDS ORDERED: LEVOTHYROXINE NA 100 MCG TABLET (FP) ONE (05:34)
[2019-02-25] MEDS: LEVOTHYROXINE 100 MCG, LEVOTHYROXINE 75 MCG PO SCH (05:59)
[2019-02-25 07:00] LABS: BASO % 1.1 % (0-2.0); HEMATOCRIT 42.5 % (32.4-45.2); HEMOGLOBIN 14.2 GM/dL (10.7-15.3); LYMPH % 27.5 % (8-40); MCH 31.8 pg (25.7-33.7); MCHC 33.3 g/dl (32.0-36.0); MEAN CELL VOLUME 95.5 fl (80-96); MEAN PLT VOLUME 8.9 fl (7.5-11.1); MONO % 8.6 % (3.8-10.2); NEUT % 54.8 % (42.8-82.8); PLATELET COUNT 188 K/MM3 (134-434); RBC 4.45 M/mm3 (3.60-5.2); RDW 15.4 % (11.6-15.6); WHITE BLOOD COUNT 3.5 K/mm3 (4.0-10.0)
[2019-02-25] MEDS ORDERED: PT OWN MED DRAWER 7, Y5N ONE (09:06)
[2019-02-25] MEDS: LOSARTAN POTASSIUM 50 MG TABLET (FP) PO SCH (09:15)
[2019-02-25] MEDS: FUROSEMIDE 40 MG TABLET (FP) PO SCH (09:15)
[2019-02-25] MEDS: RIVAROXABAN 20 MG TABLET PO SCH (09:15)
[2019-02-25] MEDS: LACTOBACILLUS ACIDOPHILUS 1 TABLET PO SCH (09:15)
[2019-02-25] MEDS: SILVER SULFADIAZINE 1% TOP CREAM 50 GM JAR TP SCH (09:17)
--- NOTE | 2019-02-25 10:00 | PN ---
Progress Note, Physician History of Present Illness: leg looking better swelling has decreased a lot - Current Medication List Current Medications: Active Medications Diltiazem HCl (Cardizem Cd -) 300 mg PO DAILY [facility] Last Admin: 02/25/19 09:15 Dose: 300 mg Furosemide (Lasix -) 40 mg PO DAILY [facility] Last Admin: 02/25/19 09:15 Dose: 40 mg Clindamycin Phosphate (Cleocin 600 Mg Premix Ivpb -) 600 mg in 50 mls @ 100 mls /hr IVPB Q8H-IV NATE; Protocol Last Admin: 02/25/19 09:15 Dose: 100 mls/hr Piperacillin Sod/Tazobactam (Sod 3.375 gm/ Dextrose) 50 mls @ 100 mls/hr IVPB Q8H-IV NATE; Protocol Last Admin: 02/25/19 02:05 Dose: 100 mls/hr Lactobacillus Acidophilus (Bacid -) 1 tab PO DAILY [facility] Last Admin: 02/25/19 09:15 Dose: 1 tab Levothyroxine Sodium 100 mcg/ (Levothyroxine Sodium 75 mcg) 175 mcg PO DAILY@ 0700 [facility] Last Admin: 02/25/19 05:59 Dose: 175 mcg Losartan Potassium (Cozaar -) 50 mg PO DAILY [facility] Last Admin: 02/25/19 09:15 Dose: 50 mg Rivaroxaban (Xarelto) 20 mg PO DAILY [facility] Last Admin: 02/25/19 09:15 Dose: 20 mg Silver Sulfadiazine (Silvadene -) 1 applic TP DAILY [facility] Last Admin: 02/25/19 09:17 Dose: 1 applic - Objective Vital Signs: Vital Signs Temperature 98.3 F 02/25/19 09:17 Pulse Rate 52 L 02/25/19 09:17 Respiratory Rate 17 02/25/19 09:17 Blood Pressure 103/72 02/25/19 09:17 O2 Sat by Pulse Oximetry (%) 98 02/24/19 22:00 Constitutional: Yes: No Distress, Calm Cardiovascular: Yes: Regular Rate and Rhythm Respiratory: Yes: Regular, CTA Bilaterally Gastrointestinal: Yes: Normal Bowel Sounds, Soft Musculoskeletal: Yes: WNL Extremities: Yes: Other Wound/Incision: Yes: Clean/Dry, Open to air Neurological: Yes: Alert, Oriented Psychiatric: Yes: Alert, Oriented Labs: CBC, BMP 02/25/19 06:25 02/24/19 07:15 INR, PTT INR 1.84 (0.83-1.09) H 02/23/19 06:38 Assessment/Plan 68 y/o. F w/ PMHx. of Afib (on Xarelto), HTN, CVA, Pneumonia, B/l Cellulites , DVT, Charcot Foot, and Sarcoidosis (not on medications currently) presented to [facility] due to left lower extremity cellulites since last week Monday after hitting her leg against a car. Cellulitis of LLE Afib HTN c/w Losartan Charcot Foot plan continue current mgmt elevation of leg will change clinda to oral rest as per the team
--- NOTE | 2019-02-25 11:14 | PN ---
Physical Exam: SUBJECTIVE: Patient seen and examined at bedside. No acute events overnight. OBJECTIVE: Vital Signs Period Temp Pulse Resp BP Sys/Mon Pulse Ox Last 24 Hr 97.9 F-98.7 F 52-57 17-21 101-115/56-72 98-98 GENERAL: NAD HEAD: Normal with no signs of trauma. EYES: EOMI Sclera Clear ENT: MMM NECK: Trachea midline, full range of motion, supple. LUNGS: CTAB. HEART: RRR S1S2 ABDOMEN: Obese, NDNT NEUROLOGICAL: Cranial nerves II through XII grossly intact. Normal speech PSYCH: Normal mood, normal affect. SKIN: LLE less erythematous. No oozing or odor appreciated Laboratory Results - last 24 hr 02/25/19 06:25 WBC 3.5 L RBC 4.45 Hgb 14.2 Hct 42.5 MCV 95.5 MCH 31.8 MCHC 33.3 RDW 15.4 Plt Count 188 MPV 8.9 Absolute Neuts (auto) 1.9 Neutrophils % 54.8 D Lymphocytes % 27.5 D Monocytes % 8.6 D Eosinophils % 8.0 H D Basophils % 1.1 Nucleated RBC % 0 Active Medications Generic Name Dose Route Start Last Admin Trade Name Freq PRN Reason Stop Dose Admin Clindamycin HCl 300 mg 02/25/19 14:00 Cleocin - PO TID NATE Diltiazem HCl 300 mg 02/23/19 10:00 02/25/19 09:15 Cardizem Cd - PO 300 mg DAILY NATE Administration Furosemide 40 mg 02/23/19 10:00 02/25/19 09:15 Lasix - PO 40 mg DAILY NATE Administration Piperacillin Sod/Tazobactam 50 mls @ 100 mls/hr 02/23/19 14:00 02/25/19 10:18 Sod 3.375 gm/ Dextrose IVPB 100 mls/hr Q8H-IV NATE Administration Protocol Lactobacillus Acidophilus 1 tab 02/22/19 11:45 02/25/19 09:15 Bacid - PO 1 tab DAILY NATE Administration Levothyroxine Sodium 100 mcg/ 175 mcg 02/23/19 07:00 02/25/19 05:59 Levothyroxine Sodium 75 mcg PO 175 mcg DAILY@0700 NATE Administration Losartan Potassium 50 mg 02/23/19 10:00 02/25/19 09:15 Cozaar - PO 50 mg DAILY NATE Administration Rivaroxaban 20 mg 02/23/19 10:00 02/25/19 09:15 Xarelto PO 20 mg DAILY NATE Administration Silver Sulfadiazine 1 applic 02/22/19 18:00 02/25/19 09:17 Silvadene - TP 1 applic DAILY NATE Administration ASSESSMENT/PLAN: 68 y/o. F w/ PMHx. of Afib (on Xarelto), HTN, CVA, Pneumonia, B/l Cellulites , DVT, Charcot Foot, and Sarcoidosis (not on medications currently) presented to [facility] due to left lower extremity cellulites since last week Monday after hitting her leg against a car. #Cellulitis of LLE -Clindamycin 300 PO TID, switched today to PO 02/25/2019. Continue Zosyn. May switch to complete PO ABx regimen tomorrow -f/u Art. Duplex ----> mild atherosclerotic disease, no evidence of hemodynamically significant stenosis. Inflow pathology to LLE, additional studies recommended. -Wound care (Dr. Regan) on board. Recommends Silvadine to area in addition to I.V ABx. ESR----> 2 CRP: 3.0 Venous Duplex Neg. for DVT, L. Popliteal cyst. Tib/Fib Xray Negative Bcx negative. WBC: 13.8 on admission. WBC today 3.5 02/25/2019 #Afib EKG: AFib: HR 78, No TWIs or significant ST segment changes, unchanged from prior. c/w Xarelto c/w Diltiazem 300mg #HTN c/w Losartan #Charcot Foot c/w Lasix 40mg #FEN no IVF monitor electrolytes and replete as needed Na Restricted Diet #DVT Ppx. c/w xarelto s/p IVC filter Visit type - Emergency Visit Emergency Visit: Yes ED Registration Date: 02/22/19 Care time: The patient presented to the Emergency Department on the above date and was hospitalized for further evaluation of their emergent condition. - New Patient This patient is new to me today: No - Critical Care Critical Care patient: No - Discharge Referral Referred to [facility] Med P.C.: No
[2019-02-25 14:02] LABS: BLOOD UREA NITROGEN 11.5 mg/dL (7-18); CALCIUM 8.1 mg/dL (8.5-10.1); CREATININE 0.9 mg/dL (0.55-1.3); POTASSIUM 3.6 mmol/L (3.5-5.1)
[2019-02-25] MEDS: CLINDAMYCIN HCL 150 MG CAPSULE (FP) PO SCH ×2 (14:35→22:11)
--- NOTE | 2019-02-25 16:19 | PN ---
Teaching Attending Note Name of Resident: Leopoldo Roque ATTENDING PHYSICIAN STATEMENT I saw and evaluated the patient. I reviewed the resident's note and discussed the case with the resident. I agree with the resident's findings and plan as documented. SUBJECTIVE: No fever or chills. No LORD. L leg is better OBJECTIVE: NAD Cv: RRR Lungs: CTAB Ext: L leg with improved erythema and edema . L thigh erythema is better DP 1+ b/l. RLE with no edema L hand with contracted fingers. ASSESSMENT AND PLAN: 68 y/o lady with h/o Stroke with residual L sided weakness, DVTs ( IVC filter), A fib, PVd and sarcoidosis who presneted with pain, erythema, and edema on LLE. She was found to have LLE cellulitis 1- LLE cellulitis: improved - po clinda and IV zosyn - d/w ID - silvadine on wounds -follow CBC 2- PVD: f/u as out pt for decreased flow. 3- H/o A fib: cont xarelto and cardizem. 4- H/o HTN: cont cardizem, and losartan. cont lasix 5- elevated TSH. repeat is slightly elevated . cont her home dose and f/u as out pt HLOC
[2019-02-26] MEDS ORDERED: PIPERACILLIN/TAZOBACTAM 3.375 GM VIAL IVPB ONE ×2 (01:14→10:06)
[2019-02-26] MEDS ORDERED: DEXTROSE 5%-WATER - 50 ML IVPB ONE ×2 (01:14→10:06)
[2019-02-26] MEDS: PIPERACILLIN/TAZOB 3.375 GM 3.375 GM in DEXTROSE 5%-WATER - 50 ML IVPB SCH ×2 (01:36→10:12)
[2019-02-26] MEDS ORDERED: LEVOTHYROXINE NA 75 MCG TABLET (FP) ONE (05:05)
[2019-02-26] MEDS ORDERED: LEVOTHYROXINE NA 100 MCG TABLET (FP) ONE (05:06)
[2019-02-26] MEDS: CLINDAMYCIN HCL 150 MG CAPSULE (FP) PO SCH ×2 (05:18→14:16)
[2019-02-26] MEDS: LEVOTHYROXINE 100 MCG, LEVOTHYROXINE 75 MCG PO SCH (06:36)
[2019-02-26 07:45] LABS: HEMOGLOBIN 15.3 GM/dL (10.7-15.3); MCH 31.9 pg (25.7-33.7); MCHC 33.2 g/dl (32.0-36.0); MEAN CELL VOLUME 96.2 fl (80-96); MEAN PLT VOLUME 8.7 fl (7.5-11.1); PLATELET COUNT 198 K/MM3 (134-434); RBC 4.78 M/mm3 (3.60-5.2); RDW 15.9 % (11.6-15.6); WHITE BLOOD COUNT 3.5 K/mm3 (4.0-10.0)
[2019-02-26 08:09] LABS: BLOOD UREA NITROGEN 12.6 mg/dL (7-18); CALCIUM 8.5 mg/dL (8.5-10.1); CREATININE 0.9 mg/dL (0.55-1.3); MAGNESIUM 2.2 mg/dL (1.8-2.4); PHOSPHOROUS 3.9 mg/dL (2.5-4.9)
[2019-02-26] MEDS ORDERED: PT OWN MED DRAWER 7, Y5N ONE (10:06)
[2019-02-26] MEDS: FUROSEMIDE 40 MG TABLET (FP) PO SCH (10:10)
[2019-02-26] MEDS: LACTOBACILLUS ACIDOPHILUS 1 TABLET PO SCH (10:10)
[2019-02-26] MEDS: RIVAROXABAN 20 MG TABLET PO SCH (10:10)
[2019-02-26] MEDS: LOSARTAN POTASSIUM 50 MG TABLET (FP) PO SCH (10:11)
[2019-02-26] MEDS: SILVER SULFADIAZINE 1% TOP CREAM 50 GM JAR TP SCH (14:16)
[2019-02-26 14:47] VITALS: TEMP 97.6
--- NOTE | 2019-02-26 15:10 | PN ---
Progress Note, Physician History of Present Illness: stable no new issues leg looks good still with edema - Current Medication List Current Medications: Active Medications Clindamycin HCl (Cleocin -) 300 mg PO TID [facility] Last Admin: 02/26/19 14:16 Dose: 300 mg Diltiazem HCl (Cardizem Cd -) 300 mg PO DAILY [facility] Last Admin: 02/26/19 10:11 Dose: 300 mg Furosemide (Lasix -) 40 mg PO DAILY [facility] Last Admin: 02/26/19 10:10 Dose: 40 mg Piperacillin Sod/Tazobactam (Sod 3.375 gm/ Dextrose) 50 mls @ 100 mls/hr IVPB Q8H-IV NATE; Protocol Last Admin: 02/26/19 10:12 Dose: 100 mls/hr Lactobacillus Acidophilus (Bacid -) 1 tab PO DAILY [facility] Last Admin: 02/26/19 10:10 Dose: 1 tab Levothyroxine Sodium 100 mcg/ (Levothyroxine Sodium 75 mcg) 175 mcg PO DAILY@ 0700 [facility] Last Admin: 02/26/19 06:36 Dose: 175 mcg Losartan Potassium (Cozaar -) 50 mg PO DAILY [facility] Last Admin: 02/26/19 10:11 Dose: 50 mg Rivaroxaban (Xarelto) 20 mg PO DAILY [facility] Last Admin: 02/26/19 10:10 Dose: 20 mg Silver Sulfadiazine (Silvadene -) 1 applic TP DAILY [facility] Last Admin: 02/26/19 14:16 Dose: 1 applic - Objective Vital Signs: Vital Signs Temperature 97.6 F 02/26/19 14:46 Pulse Rate 55 L 02/26/19 05:26 Respiratory Rate 20 02/26/19 05:26 Blood Pressure 140/77 02/26/19 05:26 O2 Sat by Pulse Oximetry (%) 98 02/25/19 22:00 Constitutional: Yes: No Distress, Calm Cardiovascular: Yes: Regular Rate and Rhythm Respiratory: Yes: Regular, CTA Bilaterally Gastrointestinal: Yes: Normal Bowel Sounds, Soft Musculoskeletal: Yes: WNL Extremities: Yes: WNL Neurological: Yes: Alert, Oriented Psychiatric: Yes: Alert, Oriented Labs: CBC, BMP 02/26/19 06:57 02/26/19 06:57 INR, PTT INR 1.84 (0.83-1.09) H 06/15/19 06:38 Assessment/Plan 68 y/o. F w/ PMHx. of Afib (on Xarelto), HTN, CVA, Pneumonia, B/l Cellulites , DVT, Charcot Foot, and Sarcoidosis (not on medications currently) presented to [facility] due to left lower extremity cellulites since last week Monday after hitting her leg against a car. Cellulitis of LLE Afib HTN c/w Losartan Charcot Foot plan elevation of leg wound care--make sure wounds don t get infected augmentin for 7 days rest as per the team
--- NOTE | 2019-02-26 15:39 | PN ---
Teaching Attending Note Name of Resident: Pito Roque ATTENDING PHYSICIAN STATEMENT I saw and evaluated the patient. I reviewed the resident's note and discussed the case with the resident. I agree with the resident's findings and plan as documented. SUBJECTIVE: No fever or chills. No LORD , no pain. L leg feels better OBJECTIVE: NAD Cv: RRR Lungs: CTAB Ext: L leg with improved erythema and edema . L thigh erythema is better DP 1+ b/l. RLE with no edema L hand with contracted fingers. ASSESSMENT AND PLAN: 68 y/o lady with h/o Stroke with residual L sided weakness, DVTs ( IVC filter), A fib, PVd and sarcoidosis who presneted with pain, erythema, and edema on LLE. She was found to have LLE cellulitis. 1- LLE cellulitis: improved - cont with po augmentin x 7 days 2- PVD: f/u as out pt for decreased flow. 3- H/o A fib: cont xarelto and cardizem. 4- H/o HTN: cont cardizem, and losartan. cont lasix 5- elevated TSH. f/u with her doctors as ou tpt . cont her current dose of synthroid Dc home
--- NOTE | 2019-02-26 17:12 | DS ---
Physical Exam: SUBJECTIVE: Patient seen and examined at bedside. No acute events overnight. OBJECTIVE: Vital Signs Period Temp Pulse Resp BP Sys/Mon Pulse Ox Last 24 Hr 97.6 F-98.4 F 50-56 18-20 103-140/71-77 98 PHYSICAL EXAM GENERAL: No acute distress HEAD: Normal with no signs of trauma. EYES: EOMI Sclera Clear ENT: MMM NECK: Trachea midline, full range of motion, supple. LUNGS: CTAB. HEART: RRR S1S2 ABDOMEN: Obese, NDNT NEUROLOGICAL: Cranial nerves II through XII grossly intact. Normal speech PSYCH: Normal mood, normal affect. SKIN: LLE erythema decreased. Less warm to touch. LABS Laboratory Results - last 24 hr 02/26/19 02/26/19 06:57 06:57 WBC 3.5 L RBC 4.78 Hgb 15.3 Hct 46.0 H MCV 96.2 H MCH 31.9 MCHC 33.2 RDW 15.9 H Plt Count 198 MPV 8.7 Sodium 142 Potassium 4.0 Chloride 108 H Carbon Dioxide 29 Anion Gap 5 L BUN 12.6 Creatinine 0.9 Est GFR (CKD-EPI)AfAm 77.22 Est GFR (CKD-EPI)NonAf 66.63 Random Glucose 76 Calcium 8.5 Phosphorus 3.9 Magnesium 2.2 HOSPITAL COURSE: Date of Admission:02/22/19 68 y/o. F w/ PMHx. of Afib (on Xarelto), HTN, CVA, Pneumonia, B/l Cellulites , DVT, Charcot Foot, and Sarcoidosis (not on medications currently) who presented to [facility] due to left lower extremity cellulites after hitting her leg against a car. Initial WBC was 13.8. Pt was initially placed on Clindamycin 600mg Q8H. Pt was also placed on Zosyn. Wound care was consulted who recommended silvadine on wounds. Venous Duplex Neg. for DVT. Arterial Duplex revealed " mild atherosclerotic disease, no evidence of hemodynamically significant stenosis. Inflow pathology to LLE, additional studies recommended. " Pt was also noted to be in afib and she was continued on her home cardizem and xarelto. Pt was discharged on Augmentin 875 BID for 7 days. Date of Discharge: 02/26/19 Minutes to complete discharge: 35 Discharge Summary Reason For Visit: CELLULITIS OF LEFT LOWER EXTREMITY WITHOUT FOOT Current Active Problems Cellulitis (Acute) A-fib (Chronic) Elevated TSH (Chronic) HTN (hypertension) (Chronic) PVD (peripheral vascular disease) (Chronic) Condition: Improved - Instructions Diet, Activity, Other Instructions: you presented to the hospital due to skin infection in your legs called cellulites , you were treated with antibiotics and you improved , you will be send home with new Antibiotics Augmentin 875 mg twice daily for 7 days. please take it will food to avoid side effects. prescription sent to your pharmacy Please follow up with your primary physician within one week your TSH level (hormone regulate thyroid function is elevated) please repeat the TSH in one month with your primary. please resume all your home meds as before admission. Please elevated your legs daily at night. Please take the following antibiotic for a total of 7 days. -Augmentin 875 mg TWICE per day for 7 days. If your symptoms worsen or you develop fever , chills, please return to Emergency room. You need to follow with the vascular surgeon to discuss the decreased flow in your Left lower extremity . please see Dr. Regan if you don't have one Referrals: Kendall Alvarez MD [Primary Care Provider] - 1 Week Jerrod Regan DO [Staff Physician] - Disposition: HOME - Home Medications Comprehensive Discharge Medication List: Ambulatory Orders Diltiazem Cd [Cardizem Cd -] 300 mg PO DAILY 04/03/12 Furosemide [Lasix -] 40 mg PO DAILY 04/03/12 Levothyroxine [Synthroid -] 175 mcg PO DAILY 04/03/12 Rivaroxaban [Xarelto -] 20 mg PO DAILY 12/08/12 Cholecalciferol (Vitamin D3) [Vitamin D3] 1 tab PO DAILY 04/07/15 Losartan Potassium [Cozaar] 1 tab PO DAILY 04/07/15 Pnv/Iron,Carb/Om-3/FA/Fat 1 [Multivitamin with Minerals Cap] 1 cap PO DAILY Amoxicillin/Potassium Clav [Augmentin 875-125 Tablet] 1 each PO BID #14 tablet 02/26/19 This patient is new to me today: No Emergency Visit: Yes ED Registration Date: 02/22/19 Care time: The patient presented to the Emergency Department on the above date and was hospitalized for further evaluation of their emergent condition. Critical Care patient: No - Discharge Referral Referred to [facility] Med P.C.: No
[2019-02-26 18:07] VITALS: BP 133/73; PULSE 57
== END 2019-02-26 18:41 | disposition home or self-care (01) | DRG 603 ==
LOC: JER 00:11 → JERBED 05:14 → J6S 10:49
PROVIDERS: ADMIT Internal Medicine; ATTEND Internal Medicine
DX: L03.116 Cellulitis of left lower limb (principal); G81.94 Hemiplegia, unspecified affecting left nondominant side; A52.16 Charcot's arthropathy (tabetic); L03.115 Cellulitis of right lower limb; I48.91 Unspecified atrial fibrillation; E03.9 Hypothyroidism, unspecified; I10 Essential (primary) hypertension; I73.9 Peripheral vascular disease, unspecified; D86.9 Sarcoidosis, unspecified; Z86.718 Personal history of other venous thrombosis and embolism; Z86.73 Personal history of transient ischemic attack (TIA), and cerebral infarction without residual deficits
CPT/HCPCS: 36415; 71045-TC-FY; 73590-TC-LT-FY; 80048; 80053; 83735; 84100; 84443; 85025; 85027; 85610; 85651; 86140; 87040; 93005; 93010; 93925-TC; 93970-TC; 97116-GP; 97161-GP; 99283-25; J7030

== ENCOUNTER 2021-08-17 12:35 | Emergency (ER) | payer BC, OTHER ==
[2021-08-17 12:41] VITALS: BMI 34.0
[2021-08-17 14:21] LABS: ALBUMIN 3.8 g/dl (3.4-5.0); BILIRUBIN,TOTAL 0.9 mg/dl (0.2-1); CREATININE 0.7 mg/dl (0.55-1.3); TOT PROT 7.1 g/dl (6.4-8.2)
[2021-08-17 15:08] LABS: BASO % 2.6 % (0-2.0); EOS % 3.4 % (0-4.5); HEMATOCRIT 45.8 % (32.4-45.2); HEMOGLOBIN 15.2 GM/dL (10.7-15.3); LYMPH % 33.4 % (8-40); MCH 31.8 pg (25.7-33.7); MCHC 33.2 g/dl (32.0-36.0); MEAN CELL VOLUME 95.6 fl (80-96); MEAN PLT VOLUME 8.6 fl (7.5-11.1); MONO % 8.7 % (3.8-10.2); NEUT % 51.9 % (42.8-82.8); PLATELET COUNT 205 10^3/uL (134-434); RBC 4.79 M/mm3 (3.60-5.2); RDW 15.1 % (11.6-15.6); WHITE BLOOD COUNT 3.8 K/mm3 (4.0-10.0)
[2021-08-17 15:44] VITALS: BP 129/77; PULSE 61; TEMP 97.8
== END 2021-08-17 15:50 | disposition home or self-care (01) ==
LOC: FER 12:35
DX: I48.91 Unspecified atrial fibrillation (principal)
CPT/HCPCS: 36415; 71045-TC-FY; 80053; 83880; 84484; 85025; 93005; 93970-TC; 99285-25; C9803; U0003; U0005